=== PATIENT | male | born 1955 | race African-American/Black ===

== ENCOUNTER 2017-08-14 13:14 | Inpatient (IN) | payer OTHER ==
[2017-08-14] VITALS (12 sets, daily range): BP systolic 101–266; BP diastolic 54–242
[~2017-08-14] VITALS: Ht 182.9 cm; Wt 91.3 kg
[2017-08-14 14:26] LABS: BASOPHIL (%) 0.2 % (0-1); EOSINOPHIL (%) 0.7 % (0-5); HEMATOCRIT 36.9 % (38.0-50.0); HEMOGLOBIN 11.6 G/DL (12.5-16.6); IMMATURE GRANULOCYTE (%) 1.9 % (0.0-0.7); LYMPHOCYTE (%) 49.8 % (15-42); LYMPHOCYTE COUNT 2.9 K/uL (1.0-2.8); MCH 33.3 PG (29.0-34.0); MCHC 31.4 G/DL (30.0-36.0); MONOCYTE (%) 3.9 % (3-12); MONOCYTE COUNT 0.2 K/uL (0-0.8); NEUTROPHIL (%) 43.5 % (45-76); NEUTROPHIL COUNT 2.6 K/uL (1.8-6.4); PLATELET COUNT 113 K/uL (156-360); RBC DIS.WIDTH-SD 54.4 % (39-53); RED BLOOD COUNT 3.48 M/uL (4.00-5.50); WHITE BLOOD COUNT 5.9 K/uL (4.1-10.2)
[2017-08-14 14:27] LABS: INTER. NORMALIZED RATIO 1.2
[2017-08-14 14:28] LABS: CHLORIDE 107 mEq/L (99-109); POTASSIUM 4.1 mEq/L (3.7-5.4); SODIUM 140 mEq/L (136-147)
[2017-08-14 14:29] LABS: GLUCOSE 342 mg/dL (70-99)
[2017-08-14 14:33] LABS: CREATININE 2.2 mg/dL (0.6-1.3); GFR ESTIMATE (CALCULATED) 39 mL/min/ (58.99-99999)
[2017-08-14 14:34] LABS: UREA NITROGEN (BUN) 17 mg/dL (9-23)
[2017-08-14 15:00] LABS: TROP-I INTERPRETATION NEGATIVE; TROPONIN-I 0.03 ng/mL (0.0-0.30)
[2017-08-14 15:09] LABS: BASE EXCESS -15.9 mEq/L (-3 to +3); BICARBONATE 12.7 mEq/L (22-26); CARBOXY HGB 1.3 % (0-5); METHEMOGLOBIN 1.2 % (0-1.5); PCO2 40 mm Hg (35-45); PO2 212 mm Hg (80-100); pH 7.11 (7.35-7.45)
[2017-08-14 15:10] LABS: COMMENTS - BLOOD GASES A+C+; DEVICE 980; FI02 100 %; MECHANICAL RATE 16 resp/min; MODE AC; PEEP 5 CM/H20; SITE RR; TIDAL VOLUME 500 ML; TOTAL RESP RATE 16 resp/min
[2017-08-14 17:59] LABS: BASE EXCESS -11.1 mEq/L (-3 to +3); CARBOXY HGB 1.7 % (0-5); METHEMOGLOBIN 1.5 % (0-1.5); PCO2 39 mm Hg (35-45)
[2017-08-14 18:00] LABS: COMMENTS - BLOOD GASES +C; DEVICE PB980; FI02 40 %; MECHANICAL RATE 16 resp/min; MODE ACVC+; PO2 94 mm Hg (80-100); SITE A-LINE; TIDAL VOLUME 500 ML; TOTAL RESP RATE 23 resp/min; pH 7.22 (7.35-7.45)
[2017-08-14 18:01] LABS: PEEP 5 CM/H20
[2017-08-14 18:35] LABS: ALBUMIN 3.2 G/DL (3.2-4.8); ALKALINE PHOSPHATASE 63 IU/L (3-129); ALT (GPT) 64 IU/L (3-49); AST (GOT) 90 IU/L (2-34); CHLORIDE 114 MEQ/L (99-109); GFR ESTIMATE (CALCULATED) > 59 mL/min/ (58.99-99999); MAGNESIUM 1.6 mg/dl (1.3-2.7); PHOSPHORUS 5.3 mg/dL (2.5-4.9); POTASSIUM 4.5 MEQ/L (3.7-5.4); SODIUM 143 MEQ/L (136-147); TOTAL BILIRUBIN 0.9 MG/DL (0.0-1.0); TOTAL PROTEIN 5.3 G/DL (6.4-8.3); UREA NITROGEN (BUN) 15 mg/dL (9-23)
[2017-08-14 18:37] LABS: CREATININE 1.5 MG/DL (0.6-1.3); GLUCOSE 121 mg/dL (70-99); INTER. NORMALIZED RATIO 1.3
[2017-08-14 18:39] LABS: PTT 60.7 SEC (25-37)
[2017-08-14 18:42] LABS: ABS NEUTROPHIL COUNT 8.4; BAND NEUTROPHILS 3.5 % (0-8.0); EOSINOPHIL ABS CT 0; HEMATOCRIT 38.4 % (38.0-50.0); HEMATOLOGY COMMENT 1 SN; HEMOGLOBIN 12.7 G/DL (12.5-16.6); LYMPHOCYTES 6.1 % (15.0-45.0); MCH 30.4 PG (29.0-34.0); MCHC 33.1 G/DL (30.0-36.0); MONOCYTES 0.9 % (0-9.0); MYELOCYTES 0.9 %; PLAT.SUFFICIENCY DECREASED; RBC DIS.WIDTH-SD 53.7 % (39-53); SEG.NEUTROPHILS 88.6 % (46.0-76.0); SMUDGE CELLS 18.4; WHITE BLOOD COUNT 9.1 K/uL (4.1-10.2)
[2017-08-14 18:43] LABS: MCV 91.9 FL (86-99); PLATELET COUNT 53 K/uL (156-360); RED BLOOD COUNT 4.18 M/uL (4.00-5.50)
[2017-08-14 18:55] LABS: APPEARANCE SL.HAZY ((CLEAR)); BILIRUBIN NEGATIVE; BLOOD LARGE; COLOR YELLOW ((YELLOW)); GLUCOSE (STRIP) 50; KETONES NEGATIVE; LEUKOCYTES TRACE; NITRITE NEGATIVE; PROTEIN (STRIP) 100; SPECIFIC GRAVITY 1.009 (1.000-1.030); UROBILINOGEN 0.2 MG/DL (0.2-1.0)
[2017-08-14 19:32] LABS: RED BLOOD CELLS 0-5 /HPF (0-5)
[2017-08-14 19:33] LABS: BACTERIA RARE /HPF; EPITHELIAL CELLS RARE /HPF; MUCUS RARE /LPF; UCUL ADDED? YES; WHITE BLOOD CELLS 40-50 /HPF (0-5)
[2017-08-14 19:40] LABS: FIBRINOGEN 125 mg/dL (150-450)
[2017-08-14 22:06] LABS: AMPHETAMINE NEGATIVE (500 ng/mL); BARBITURATES NEGATIVE (200 ng/mL); BENZODIAZEPINES NEGATIVE (150 ng/mL); BUPRENORPHINE NEGATIVE (10 ng/mL); COCAINE NEGATIVE (150 ng/mL); METHADONE NEGATIVE (200 ng/mL); METHAMPHETAMINE PRESUMPTIVE POSITIVE (500 ng/mL); OPIATES (MORPHINE) NEGATIVE (100 ng/mL); OXYCODONE NEGATIVE (100 ng/mL); PHENCYCLIDINE NEGATIVE (25 ng/mL); PROPOXYPHENE NEGATIVE (300 ng/mL); THC CANNABINOIDS NEGATIVE (50 ng/mL); TRICYCLIC ANTIDEPRESSANTS NEGATIVE (300 ng/mL)
[2017-08-15 00:05] LABS: CHLORIDE 115 mEq/L (99-109); POTASSIUM 5.4 mEq/L (3.7-5.4); SODIUM 145 mEq/L (136-147)
[2017-08-15 00:10] LABS: CREATININE 1.7 mg/dL (0.6-1.3); GFR ESTIMATE (CALCULATED) 53 mL/min/ (58.99-99999)
[2017-08-15 00:11] LABS: UREA NITROGEN (BUN) 17 mg/dL (9-23)
[2017-08-15 00:17] LABS: GLUCOSE 83 mg/dL (70-99)
[2017-08-15 00:42] LABS: INTER. NORMALIZED RATIO 1.3
[2017-08-15 00:47] LABS: FIBRINOGEN 145 mg/dL (150-450)
[2017-08-15 00:56] LABS: PTT 34.6 SEC (25-37)
[2017-08-15 02:25] LABS: BASOPHIL (%) 0.1 % (0-1); EOSINOPHIL (%) 0.2 % (0-5); HEMATOCRIT 34.3 % (38.0-50.0); HEMOGLOBIN 11.4 G/DL (12.5-16.6); IMMATURE GRANULOCYTE (%) 1.1 % (0.0-0.7); LYMPHOCYTE COUNT 0.8 K/uL (1.0-2.8); MCH 29.8 PG (29.0-34.0); MCHC 33.2 G/DL (30.0-36.0); MCV 89.6 FL (86-99); MONOCYTE (%) 8.4 % (3-12); MONOCYTE COUNT 0.8 K/uL (0-0.8); NEUTROPHIL (%) 81.2 % (45-76); NEUTROPHIL COUNT 7.5 K/uL (1.8-6.4); RBC DIS.WIDTH-CV 16.8 % (11.8-14.6); RBC DIS.WIDTH-SD 54.8 % (39-53); RED BLOOD COUNT 3.83 M/uL (4.00-5.50); WHITE BLOOD COUNT 9.2 K/uL (4.1-10.2)
[2017-08-15 02:26] LABS: PLATELET COUNT 85 K/uL (156-360)
[2017-08-15 06:54] LABS: BASOPHIL (%) 0.1 % (0-1); EOSINOPHIL (%) 0 % (0-5); HEMATOCRIT 31.1 % (38.0-50.0); HEMOGLOBIN 10.4 G/DL (12.5-16.6); IMMATURE GRANULOCYTE (%) 0.7 % (0.0-0.7); LYMPHOCYTE (%) 16.3 % (15-42); LYMPHOCYTE COUNT 1.2 K/uL (1.0-2.8); MCH 29.6 PG (29.0-34.0); MCHC 33.4 G/DL (30.0-36.0); MCV 88.6 FL (86-99); MONOCYTE (%) 9.3 % (3-12); MONOCYTE COUNT 0.7 K/uL (0-0.8); NEUTROPHIL (%) 73.6 % (45-76); NEUTROPHIL COUNT 5.3 K/uL (1.8-6.4); RBC DIS.WIDTH-SD 55.6 % (39-53); RED BLOOD COUNT 3.51 M/uL (4.00-5.50); WHITE BLOOD COUNT 7.2 K/uL (4.1-10.2)
[2017-08-15 06:55] LABS: INTER. NORMALIZED RATIO 1.3
[2017-08-15 06:57] LABS: PTT 31.9 SEC (25-37)
[2017-08-15 06:59] LABS: FIBRINOGEN 138 mg/dL (150-450)
[2017-08-15 07:49] LABS: PLAT.SUFFICIENCY DECREASED
[2017-08-15 07:50] LABS: PLATELET COUNT 56 K/uL (156-360)
[2017-08-15 09:06] LABS: ALBUMIN 3.8 G/DL (3.2-4.8); ALKALINE PHOSPHATASE 49 IU/L (3-129); ALT (GPT) 108 IU/L (3-49); CHLORIDE 112 MEQ/L (99-109); GFR ESTIMATE (CALCULATED) 44 mL/min/ (58.99-99999); GLUCOSE 99 mg/dL (70-99); POTASSIUM 5.1 MEQ/L (3.7-5.4); SODIUM 145 MEQ/L (136-147); TOTAL PROTEIN 5.3 G/DL (6.4-8.3); UREA NITROGEN (BUN) 23 mg/dL (9-23)
[2017-08-15 09:07] LABS: AST (GOT) 239 IU/L (2-34); TOTAL BILIRUBIN 4.5 MG/DL (0.0-1.0)
[2017-08-15 09:28] VITALS: BP 128/54
[2017-08-15 09:53] VITALS: BP 127/56
[2017-08-15 10:03] LABS: HEPATITIS B SURFACE ANTIGEN Nonreactive
[2017-08-15 10:04] LABS: ANTI-HEPATITIS A VIRUS (IGM) Nonreactive
[2017-08-15 10:05] LABS: ANTI-HEPATITIS B CORE (IGM) Nonreactive
[2017-08-15 10:11] LABS: MAGNESIUM 1.4 mg/dl (1.3-2.7); PHOSPHORUS 3.7 mg/dL (2.5-4.9)
[2017-08-15 11:04] LABS: HEPATITIS C ANTIBODY REACTIVE
[2017-08-15 12:25] LABS: BASOPHIL (%) 0.1 % (0-1); EOSINOPHIL (%) 0 % (0-5); HEMATOCRIT 29.3 % (38.0-50.0); HEMOGLOBIN 9.9 G/DL (12.5-16.6); IMMATURE GRANULOCYTE (%) 0.4 % (0.0-0.7); LYMPHOCYTE (%) 27.3 % (15-42); MCH 30.1 PG (29.0-34.0); MCHC 33.8 G/DL (30.0-36.0); MCV 89.1 FL (86-99); MONOCYTE (%) 7.9 % (3-12); MONOCYTE COUNT 0.6 K/uL (0-0.8); NEUTROPHIL (%) 64.3 % (45-76); NEUTROPHIL COUNT 4.6 K/uL (1.8-6.4); NRBC (%) 0.3 /100 WBC (0-0); PLATELET COUNT 57 K/uL (156-360); RBC DIS.WIDTH-CV 17.2 % (11.8-14.6); RBC DIS.WIDTH-SD 55.4 % (39-53); RED BLOOD COUNT 3.29 M/uL (4.00-5.50); WHITE BLOOD COUNT 7.2 K/uL (4.1-10.2)
[2017-08-15 12:26] LABS: CARBON DIOXIDE (BICARBONATE) 27.9 MEQ/L (20-31)
[2017-08-15 13:00] LABS: FIBRINOGEN 158 mg/dL (150-450); INTER. NORMALIZED RATIO 1.3
[2017-08-15 13:02] LABS: PTT 29.1 SEC (25-37)
[2017-08-15 18:27] LABS: BASOPHIL (%) 0.3 % (0-1); EOSINOPHIL (%) 0.1 % (0-5); HEMATOCRIT 28.7 % (38.0-50.0); HEMOGLOBIN 9.7 G/DL (12.5-16.6); IMMATURE GRANULOCYTE (%) 0.4 % (0.0-0.7); LYMPHOCYTE (%) 22.6 % (15-42); LYMPHOCYTE COUNT 1.7 K/uL (1.0-2.8); MCHC 33.8 G/DL (30.0-36.0); MCV 88.9 FL (86-99); MONOCYTE (%) 9.1 % (3-12); MONOCYTE COUNT 0.7 K/uL (0-0.8); NEUTROPHIL (%) 67.5 % (45-76); NEUTROPHIL COUNT 5.2 K/uL (1.8-6.4); PLATELET COUNT 52 K/uL (156-360); RBC DIS.WIDTH-CV 17.2 % (11.8-14.6); RBC DIS.WIDTH-SD 55.4 % (39-53); RED BLOOD COUNT 3.23 M/uL (4.00-5.50); WHITE BLOOD COUNT 7.7 K/uL (4.1-10.2)
[2017-08-15 18:51] LABS: FIBRINOGEN 167 mg/dL (150-450); INTER. NORMALIZED RATIO 1.3
[2017-08-15 22:18] LABS: CHLORIDE 109 MEQ/L (99-109); CREATININE 2.1 MG/DL (0.6-1.3); GFR ESTIMATE (CALCULATED) 42 mL/min/ (58.99-99999); GLUCOSE 96 mg/dL (70-99); POTASSIUM 4.7 MEQ/L (3.7-5.4); SODIUM 140 MEQ/L (136-147); UREA NITROGEN (BUN) 30 mg/dL (9-23)
[2017-08-16 05:04] LABS: HEMATOCRIT 30.8 % (38.0-50.0); HEMOGLOBIN 10.4 G/DL (12.5-16.6); MCH 30.6 PG (29.0-34.0); MCHC 33.8 G/DL (30.0-36.0); MCV 90.6 FL (86-99); NRBC (%) 0.2 /100 WBC (0-0); PLATELET COUNT 56 K/uL (156-360); RBC DIS.WIDTH-CV 17.5 % (11.8-14.6); RBC DIS.WIDTH-SD 57.2 % (39-53); WHITE BLOOD COUNT 9.1 K/uL (4.1-10.2)
[2017-08-16 05:36] LABS: ALBUMIN 3.3 G/DL (3.2-4.8); ALKALINE PHOSPHATASE 52 IU/L (3-129); CHLORIDE 111 MEQ/L (99-109); DIRECT BILIRUBIN 3.1 mg/dL (0.0-0.3); GFR ESTIMATE (CALCULATED) 44 mL/min/ (58.99-99999); GLUCOSE 103 mg/dL (70-99); POTASSIUM 4.7 MEQ/L (3.7-5.4); SODIUM 144 MEQ/L (136-147); TOTAL PROTEIN 5.1 G/DL (6.4-8.3); UREA NITROGEN (BUN) 31 mg/dL (9-23)
[2017-08-16 05:37] LABS: ALT (GPT) 246 IU/L (3-49); AST (GOT) 503 IU/L (2-34); PHOSPHORUS 2.4 mg/dL (2.5-4.9)
[2017-08-16 22:09] LABS: CHLORIDE 110 MEQ/L (99-109); CREATININE 1.7 MG/DL (0.6-1.3); GFR ESTIMATE (CALCULATED) 53 mL/min/ (58.99-99999); GLUCOSE 127 mg/dL (70-99); POTASSIUM 4.8 MEQ/L (3.7-5.4); SODIUM 142 MEQ/L (136-147); UREA NITROGEN (BUN) 32 mg/dL (9-23)
[2017-08-17] VITALS (8 sets, daily range): BP systolic 105–148; BP diastolic 73–97
[2017-08-17 05:26] LABS: BASOPHIL (%) 0.1 % (0-1); EOSINOPHIL (%) 0.2 % (0-5); HEMATOCRIT 31.8 % (38.0-50.0); HEMOGLOBIN 10.1 G/DL (12.5-16.6); IMMATURE GRANULOCYTE (%) 0.6 % (0.0-0.7); LYMPHOCYTE (%) 15.7 % (15-42); LYMPHOCYTE COUNT 1.8 K/uL (1.0-2.8); MCHC 31.8 G/DL (30.0-36.0); MCV 94.4 FL (86-99); MONOCYTE (%) 9.4 % (3-12); MONOCYTE COUNT 1.1 K/uL (0-0.8); NEUTROPHIL COUNT 8.3 K/uL (1.8-6.4); NRBC (%) 0.2 /100 WBC (0-0); PLATELET COUNT 68 K/uL (156-360); RBC DIS.WIDTH-CV 17.2 % (11.8-14.6); RBC DIS.WIDTH-SD 59.1 % (39-53); RED BLOOD COUNT 3.37 M/uL (4.00-5.50); WHITE BLOOD COUNT 11.2 K/uL (4.1-10.2)
[2017-08-17 05:44] LABS: INTER. NORMALIZED RATIO 1.2
[2017-08-17 05:47] LABS: PTT 26.2 SEC (25-37)
[2017-08-17 06:05] LABS: ALBUMIN 3.3 G/DL (3.2-4.8); ALKALINE PHOSPHATASE 52 IU/L (3-129); ALT (GPT) 194 IU/L (3-49); CHLORIDE 109 MEQ/L (99-109); CREATININE 1.6 MG/DL (0.6-1.3); GFR ESTIMATE (CALCULATED) 57 mL/min/ (58.99-99999); GLUCOSE 123 mg/dL (70-99); POTASSIUM 4.8 MEQ/L (3.7-5.4); SODIUM 142 MEQ/L (136-147); TOTAL PROTEIN 5.5 G/DL (6.4-8.3); UREA NITROGEN (BUN) 33 mg/dL (9-23)
[2017-08-17 06:06] LABS: AST (GOT) 226 IU/L (2-34); PHOSPHORUS 3.4 mg/dL (2.5-4.9); TOTAL BILIRUBIN 6.9 MG/DL (0.0-1.0)
[2017-08-17 10:57] LABS: HIV-1/2 AB/AG COMBO Nonreactive
[2017-08-17 22:05] LABS: CHLORIDE 112 MEQ/L (99-109); CREATININE 1.5 MG/DL (0.6-1.3); GFR ESTIMATE (CALCULATED) > 59 mL/min/ (58.99-99999); GLUCOSE 121 mg/dL (70-99); POTASSIUM 4.4 MEQ/L (3.7-5.4); SODIUM 143 MEQ/L (136-147); UREA NITROGEN (BUN) 38 mg/dL (9-23)
[2017-08-18] VITALS (14 sets, daily range): BP systolic 110–168; BP diastolic 70–100
[2017-08-18 06:03] LABS: CHLORIDE 113 MEQ/L (99-109); CREATININE 1.6 MG/DL (0.6-1.3); GFR ESTIMATE (CALCULATED) 57 mL/min/ (58.99-99999); GLUCOSE 102 mg/dL (70-99); POTASSIUM 4.7 MEQ/L (3.7-5.4); SODIUM 146 MEQ/L (136-147); UREA NITROGEN (BUN) 41 mg/dL (9-23)
[2017-08-18 06:07] LABS: BASOPHIL (%) 0.2 % (0-1); EOSINOPHIL COUNT 0.1 K/uL (0-0.3); HEMATOCRIT 31.6 % (38.0-50.0); IMMATURE GRANULOCYTE (%) 0.5 % (0.0-0.7); LYMPHOCYTE (%) 15.1 % (15-42); LYMPHOCYTE COUNT 1.7 K/uL (1.0-2.8); MCH 30.4 PG (29.0-34.0); MCHC 31.6 G/DL (30.0-36.0); MONOCYTE (%) 10.2 % (3-12); MONOCYTE COUNT 1.2 K/uL (0-0.8); NEUTROPHIL COUNT 8.3 K/uL (1.8-6.4); NRBC (%) 0.7 /100 WBC (0-0); PLATELET COUNT 85 K/uL (156-360); RBC DIS.WIDTH-SD 58.5 % (39-53); RED BLOOD COUNT 3.29 M/uL (4.00-5.50); WHITE BLOOD COUNT 11.4 K/uL (4.1-10.2)
[2017-08-18 11:52] LABS: INTER. NORMALIZED RATIO 1.2
[2017-08-18 11:54] LABS: PTT 26.3 SEC (25-37)
[2017-08-19] VITALS (11 sets, daily range): BP systolic 103–177; BP diastolic 60–103
[2017-08-19 00:42] LABS: HEMOGLOBIN 10.3 G/DL (12.5-16.6); MCV 95.2 FL (86-99)
[2017-08-19 07:03] LABS: HEMATOCRIT 30.5 % (38.0-50.0); HEMOGLOBIN 9.7 G/DL (12.5-16.6); MCH 30.8 PG (29.0-34.0); MCHC 31.8 G/DL (30.0-36.0); MCV 96.8 FL (86-99); NRBC (%) 1.2 /100 WBC (0-0); PLATELET COUNT 90 K/uL (156-360); RBC DIS.WIDTH-CV 16.9 % (11.8-14.6); RBC DIS.WIDTH-SD 58.4 % (39-53); RED BLOOD COUNT 3.15 M/uL (4.00-5.50); WHITE BLOOD COUNT 7.8 K/uL (4.1-10.2)
[2017-08-19 07:30] LABS: ALKALINE PHOSPHATASE 52 IU/L (3-129); ALT (GPT) 90 IU/L (3-49); CHLORIDE 112 MEQ/L (99-109); CREATININE 1.3 MG/DL (0.6-1.3); DIRECT BILIRUBIN 3.9 mg/dL (0.0-0.3); GFR ESTIMATE (CALCULATED) > 59 mL/min/ (58.99-99999); GLUCOSE 92 mg/dL (70-99); POTASSIUM 4.1 MEQ/L (3.7-5.4); SODIUM 145 MEQ/L (136-147); TOTAL BILIRUBIN 6.1 MG/DL (0.0-1.0); TOTAL PROTEIN 5.4 G/DL (6.4-8.3); UREA NITROGEN (BUN) 35 mg/dL (9-23)
[2017-08-19 07:32] LABS: AST (GOT) 83 IU/L (2-34)
[2017-08-19 10:58] LABS: INTER. NORMALIZED RATIO 1.2
[2017-08-19 11:01] LABS: PTT 56.9 SEC (25-37)
[2017-08-19 16:13] LABS: HEMATOCRIT 31.6 % (38.0-50.0); MCV 95.8 FL (86-99)
[2017-08-19 20:47] LABS: BASOPHIL (%) 0.4 % (0-1); EOSINOPHIL (%) 2.3 % (0-5); EOSINOPHIL COUNT 0.2 K/uL (0-0.3); HEMATOCRIT 31.8 % (38.0-50.0); HEMOGLOBIN 10.2 G/DL (12.5-16.6); IMMATURE GRANULOCYTE (%) 3.5 % (0.0-0.7); LYMPHOCYTE (%) 21.8 % (15-42); LYMPHOCYTE COUNT 1.7 K/uL (1.0-2.8); MCH 30.4 PG (29.0-34.0); MCHC 32.1 G/DL (30.0-36.0); MCV 94.9 FL (86-99); MONOCYTE (%) 14.6 % (3-12); MONOCYTE COUNT 1.1 K/uL (0-0.8); NEUTROPHIL (%) 57.4 % (45-76); NEUTROPHIL COUNT 4.5 K/uL (1.8-6.4); NRBC (%) 3.3 /100 WBC (0-0); RBC DIS.WIDTH-CV 16.7 % (11.8-14.6); RBC DIS.WIDTH-SD 56.2 % (39-53); RED BLOOD COUNT 3.35 M/uL (4.00-5.50); WHITE BLOOD COUNT 7.8 K/uL (4.1-10.2)
[2017-08-19 20:51] LABS: PLATELET COUNT 127 K/uL (156-360)
[2017-08-20 05:50] LABS: INTER. NORMALIZED RATIO 1.2
[2017-08-20 05:53] LABS: BASOPHIL (%) 0.4 % (0-1); EOSINOPHIL (%) 2.3 % (0-5); EOSINOPHIL COUNT 0.2 K/uL (0-0.3); HEMATOCRIT 29.9 % (38.0-50.0); HEMOGLOBIN 9.5 G/DL (12.5-16.6); IMMATURE GRANULOCYTE (%) 4.9 % (0.0-0.7); LYMPHOCYTE (%) 21.3 % (15-42); LYMPHOCYTE COUNT 1.7 K/uL (1.0-2.8); MCH 30.6 PG (29.0-34.0); MCHC 31.8 G/DL (30.0-36.0); MCV 96.5 FL (86-99); MONOCYTE (%) 15.7 % (3-12); MONOCYTE COUNT 1.2 K/uL (0-0.8); NEUTROPHIL (%) 55.4 % (45-76); NEUTROPHIL COUNT 4.3 K/uL (1.8-6.4); NRBC (%) 2.6 /100 WBC (0-0); PTT 77.1 SEC (25-37); RBC DIS.WIDTH-CV 16.9 % (11.8-14.6); RBC DIS.WIDTH-SD 57.7 % (39-53); WHITE BLOOD COUNT 7.8 K/uL (4.1-10.2)
[2017-08-20 06:18] LABS: ALKALINE PHOSPHATASE 62 IU/L (3-129); ALT (GPT) 76 IU/L (3-49); AST (GOT) 72 IU/L (2-34); CHLORIDE 111 MEQ/L (99-109); CREATININE 1.3 MG/DL (0.6-1.3); DIRECT BILIRUBIN 3.4 mg/dL (0.0-0.3); GFR ESTIMATE (CALCULATED) > 59 mL/min/ (58.99-99999); GLUCOSE 106 mg/dL (70-99); POTASSIUM 3.7 MEQ/L (3.7-5.4); SODIUM 144 MEQ/L (136-147); TOTAL BILIRUBIN 5.2 MG/DL (0.0-1.0); UREA NITROGEN (BUN) 34 mg/dL (9-23)
[2017-08-20 06:34] LABS: ABS NEUTROPHIL COUNT 5.7; ANISOCYTOSIS 1+; ATYPICAL LYMPHOCYTE 1.8 %; BAND NEUTROPHILS 3.6 % (0-8.0); EOSINOPHIL ABS CT 0.1; EOSINOPHILS 1.8 % (0-5.0); LYMPHOCYTES 9.9 % (15.0-45.0); MACROCYTES 1+; METAMYELOCYTES 2.7 %; MONOCYTES 9.9 % (0-9.0); MYELOCYTES 0.9 %; NUCLEATED RBC'S 3.6; PLAT.SUFFICIENCY DECREASED; PLATELET COUNT 120 K/uL (156-360); POLYCHROMASIA 1+; SEG.NEUTROPHILS 69.4 % (46.0-76.0)
[2017-08-20 07:35] VITALS: BP 164/85
[2017-08-20 15:21] VITALS: BP 142/82
[2017-08-21] VITALS (7 sets, daily range): BP systolic 134–161; BP diastolic 72–86
[2017-08-21 06:04] LABS: INTER. NORMALIZED RATIO 1.2
[2017-08-21 06:15] LABS: BASOPHIL (%) 0.4 % (0-1); EOSINOPHIL (%) 2.4 % (0-5); EOSINOPHIL COUNT 0.2 K/uL (0-0.3); HEMATOCRIT 31.1 % (38.0-50.0); HEMOGLOBIN 9.4 G/DL (12.5-16.6); IMMATURE GRANULOCYTE (%) 4.3 % (0.0-0.7); LYMPHOCYTE (%) 23.5 % (15-42); LYMPHOCYTE COUNT 1.8 K/uL (1.0-2.8); MCH 30.2 PG (29.0-34.0); MCHC 30.2 G/DL (30.0-36.0); MONOCYTE (%) 13.6 % (3-12); NEUTROPHIL (%) 55.8 % (45-76); NEUTROPHIL COUNT 4.2 K/uL (1.8-6.4); NRBC (%) 2.5 /100 WBC (0-0); PLATELET COUNT 121 K/uL (156-360); RBC DIS.WIDTH-CV 17.5 % (11.8-14.6); RBC DIS.WIDTH-SD 61.2 % (39-53); RED BLOOD COUNT 3.11 M/uL (4.00-5.50); WHITE BLOOD COUNT 7.5 K/uL (4.1-10.2)
[2017-08-21 06:51] LABS: PTT 68.9 SEC (25-37)
[2017-08-21 10:36] LABS: ALBUMIN 2.7 G/DL (3.2-4.8); ALKALINE PHOSPHATASE 58 IU/L (3-129); ALT (GPT) 64 IU/L (3-49); AST (GOT) 68 IU/L (2-34); CHLORIDE 111 MEQ/L (99-109); CREATININE 1.2 MG/DL (0.6-1.3); GFR ESTIMATE (CALCULATED) > 59 mL/min/ (58.99-99999); GLUCOSE 129 mg/dL (70-99); POTASSIUM 3.6 MEQ/L (3.7-5.4); SODIUM 142 MEQ/L (136-147); TOTAL BILIRUBIN 3.5 MG/DL (0.0-1.0); TOTAL PROTEIN 5.2 G/DL (6.4-8.3); UREA NITROGEN (BUN) 24 mg/dL (9-23)
[2017-08-21 11:48] LABS: HEMATOCRIT 25.1 % (38.0-50.0); HEMOGLOBIN 7.9 G/DL (12.5-16.6); MCV 96.9 FL (86-99)
[2017-08-22 00:10] VITALS: BP 153/80
[2017-08-22 06:13] LABS: INTER. NORMALIZED RATIO 1.2
[2017-08-22 06:22] LABS: PTT 90.8 SEC (25-37)
[2017-08-22 08:45] VITALS: BP 163/85
[2017-08-22 08:51] LABS: HEMATOCRIT 30.9 % (38.0-50.0); HEMOGLOBIN 9.8 G/DL (12.5-16.6); MCV 96.6 FL (86-99)
[2017-08-22 09:16] LABS: CHLORIDE 111 MEQ/L (99-109); POTASSIUM 3.6 MEQ/L (3.7-5.4); SODIUM 139 MEQ/L (136-147); TOTAL BILIRUBIN 2.9 MG/DL (0.0-1.0)
[2017-08-22 09:23] LABS: ALKALINE PHOSPHATASE 77 IU/L (3-129); ALT (GPT) 56 IU/L (3-49); AST (GOT) 67 IU/L (2-34); GFR ESTIMATE (CALCULATED) > 59 mL/min/ (58.99-99999); TOTAL PROTEIN 5.3 G/DL (6.4-8.3); UREA NITROGEN (BUN) 22 mg/dL (9-23)
[2017-08-22 09:24] LABS: GLUCOSE 91 mg/dL (70-99)
[2017-08-22 16:12] VITALS: BP 138/74
[2017-08-22 23:58] VITALS: BP 151/87
[2017-08-23 06:16] LABS: INTER. NORMALIZED RATIO 1.5
[2017-08-23 08:00] VITALS: BP 164/98
[2017-08-23 10:59] LABS: HEMATOCRIT 31.8 % (38.0-50.0); HEMOGLOBIN 10.2 G/DL (12.5-16.6); MCH 30.8 PG (29.0-34.0); MCHC 32.1 G/DL (30.0-36.0); MCV 96.1 FL (86-99); NRBC (%) 4.7 /100 WBC (0-0); RBC DIS.WIDTH-CV 17.5 % (11.8-14.6); RBC DIS.WIDTH-SD 58.3 % (39-53); RED BLOOD COUNT 3.31 M/uL (4.00-5.50); WHITE BLOOD COUNT 7.8 K/uL (4.1-10.2)
[2017-08-23 11:00] LABS: PLATELET COUNT 211 K/uL (156-360)
[2017-08-23 11:16] LABS: ALKALINE PHOSPHATASE 84 IU/L (3-129); ALT (GPT) 54 IU/L (3-49); AST (GOT) 67 IU/L (2-34); CHLORIDE 108 MEQ/L (99-109); GFR ESTIMATE (CALCULATED) > 59 mL/min/ (58.99-99999); GLUCOSE 95 mg/dL (70-99); MAGNESIUM 1.8 mg/dl (1.3-2.7); PHOSPHORUS 2.9 mg/dL (2.5-4.9); POTASSIUM 3.7 MEQ/L (3.7-5.4); SODIUM 139 MEQ/L (136-147); TOTAL BILIRUBIN 2.5 MG/DL (0.0-1.0); TOTAL PROTEIN 5.6 G/DL (6.4-8.3); UREA NITROGEN (BUN) 20 mg/dL (9-23)
[2017-08-23] MEDS ORDERED: XIFAXAN550 MG PO (11:55)
[2017-08-23] MEDS ORDERED: WARFARIN SODIU7.5 MG PO (11:55)
[2017-08-23] MEDS ORDERED: LOVENOX100 MG/1 M SC (11:55)
[2017-08-23] MEDS ORDERED: LABETALOL HCL200 MG PO (11:56)
[2017-08-23] MEDS ORDERED: ENDOCET 5-3251 EACH PO (11:56)
[2017-08-23] MEDS ORDERED: APRESOLINE25 MG PO (11:56)
== END 2017-08-23 14:27 | DRG 853 ==
LOC: EME 13:14 → 4WEST 16:06 → ENRESERV 17:36 → 4WEST 08-17 22:40 → CANRESERV 08-19 10:22 → ENRESERV 08-19 10:22 → 4WEST 08-19 10:30 → ENRESERV 08-19 10:48 → 5EAST 08-19 12:26
PROVIDERS: Emergency Medicine; Hospitalist; Internal Medicine Critical Care Medicine; Obstetrics & Gynecology; Surgery
PROC: 30233R1 Transfusion of Nonautologous Platelets into Peripheral Vein, Percutaneous Approach (ICD-10-PCS; principal; 2017-08-14)
PROC: 30230N1 Transfusion of Nonautologous Red Blood Cells into Peripheral Vein, Open Approach (ICD-10-PCS; principal; 2017-08-14)
PROC: 30233M1 Transfusion of Nonautologous Plasma Cryoprecipitate into Peripheral Vein, Percutaneous Approach (ICD-10-PCS; principal; 2017-08-14)
PROC: 30233K1 Transfusion of Nonautologous Frozen Plasma into Peripheral Vein, Percutaneous Approach (ICD-10-PCS; principal; 2017-08-14)
PROC: 0FB20ZZ Excision of Left Lobe Liver, Open Approach (ICD-10-PCS; principal; 2017-08-14)
PROC: 02HV33Z Insertion of Infusion Device into Superior Vena Cava, Percutaneous Approach (ICD-10-PCS; 2017-08-16)
DX: R57.8 Other shock (principal); C22.0 Liver cell carcinoma; I10 Essential (primary) hypertension; K66.1 Hemoperitoneum; K76.89 Other specified diseases of liver; B19.20 Unspecified viral hepatitis C without hepatic coma; R55 Syncope and collapse; I26.99 Other pulmonary embolism without acute cor pulmonale; K74.60 Unspecified cirrhosis of liver; J96.00 Acute respiratory failure, unspecified whether with hypoxia or hypercapnia; K56.7 Ileus, unspecified; B18.2 Chronic viral hepatitis C; J98.11 Atelectasis; K72.90 Hepatic failure, unspecified without coma
CPT/HCPCS: 36600; 71045; 71275; 74018; 74174; 74177; 80047; 80048; 80048 91; 80053; 80074; 80076; 81003; 82105 90; 82140; 82248; 82330; 82803; 83605; 83735; 84100; 84484; 85014; 85018; 85025; 85025 91; 85027; 85384; 85610; 85730; 86850; 86900; 86901; 86920; 86965; 87040; 87070; 87086; 87205; 87389; 87641; 88307; 88341 TC; 88342 TC; 93005; 93970; 94002; 94003; 94760; 94799; 97530 GO; 97530 GP; 99281; 99285; C1751; C1769; C1894; J0330; J0360; J0610; J1100; J1335; J1650; J2250; J2543; J2704; J3010; J3475; J7050; J7644; P9012; P9016; P9017; P9035; P9040; P9047

== ENCOUNTER 2017-08-28 04:50 | Inpatient (IN) | payer OTHER ==
[2017-08-28] VITALS (13 sets, daily range): BP systolic 136–181; BP diastolic 71–111
[~2017-08-28] VITALS: Ht 175.3 cm; Wt 84.5 kg
[~2017-08-28 04:50] MED LIST: APRESOLINE25 MG PO; ENDOCET 5-3251 EACH PO; LABETALOL HCL200 MG PO; LOVENOX100 MG/1 M SC; WARFARIN SODIU7.5 MG PO; XIFAXAN550 MG PO
[2017-08-28 05:31] LABS: ALBUMIN 3.2 g/dL (3.2-4.8); CHLORIDE 105 mEq/L (99-109); INTER. NORMALIZED RATIO 2.4; POTASSIUM 3.6 mEq/L (3.7-5.4); SODIUM 137 mEq/L (136-147)
[2017-08-28 05:33] LABS: GLUCOSE 99 mg/dL (70-99)
[2017-08-28 05:34] LABS: TOTAL PROTEIN 6.2 g/dL (6.4-8.3)
[2017-08-28 05:35] LABS: TOTAL BILIRUBIN 1.8 mg/dL (0.0-1.0)
[2017-08-28 05:37] LABS: ALKALINE PHOSPHATASE 142 IU/L (3-129); CREATININE 0.9 mg/dL (0.6-1.3); GFR ESTIMATE (CALCULATED) > 59 mL/min/ (58.99-99999)
[2017-08-28 05:38] LABS: UREA NITROGEN (BUN) 15 mg/dL (9-23)
[2017-08-28 05:39] LABS: AST (GOT) 64 IU/L (2-34)
[2017-08-28 05:40] LABS: ALT (GPT) 54 IU/L (3-49)
[2017-08-28 05:41] LABS: LIPASE 327 U/L (1.0-51.0)
[2017-08-28 06:04] LABS: PTT 54.4 SEC (25-37)
[2017-08-28 06:08] LABS: HEMATOCRIT 34.2 % (38.0-50.0); HEMOGLOBIN 11.1 G/DL (12.5-16.6); MCH 31.2 PG (29.0-34.0); MCHC 32.5 G/DL (30.0-36.0); MCV 96.1 FL (86-99); NRBC (%) 0.3 /100 WBC (0-0); RBC DIS.WIDTH-CV 18.9 % (11.8-14.6); RBC DIS.WIDTH-SD 64.8 % (39-53); RED BLOOD COUNT 3.56 M/uL (4.00-5.50); WHITE BLOOD COUNT 7.9 K/uL (4.1-10.2)
[2017-08-28 06:49] LABS: PLAT.SUFFICIENCY INCREASED
[2017-08-28 06:50] LABS: PLATELET COUNT 350 K/uL (156-360)
[2017-08-28 12:25] LABS: HEMATOCRIT 32.8 % (38.0-50.0); HEMOGLOBIN 10.8 G/DL (12.5-16.6); MCV 95.6 FL (86-99)
[2017-08-28] MEDS ORDERED: COUMADIN4 MG PO (12:29)
[2017-08-28] MEDS ORDERED: TYLENOL REGULA325 MG PO (12:30)
[2017-08-28 12:49] LABS: INTER. NORMALIZED RATIO 2.3
[2017-08-28 12:51] LABS: PTT 38.3 SEC (25-37)
[2017-08-28 18:14] LABS: HEMATOCRIT 33.9 % (38.0-50.0); HEMOGLOBIN 10.9 G/DL (12.5-16.6); MCV 95.5 FL (86-99)
[2017-08-28 18:47] LABS: INTER. NORMALIZED RATIO 1.7
[2017-08-29 00:39] LABS: HEMATOCRIT 34.3 % (38.0-50.0); HEMOGLOBIN 11.2 G/DL (12.5-16.6); MCV 95.8 FL (86-99)
[2017-08-29 03:14] VITALS: BP 145/81
[2017-08-29 05:24] LABS: HEMOGLOBIN 10.5 G/DL (12.5-16.6); MCH 30.1 PG (29.0-34.0); MCHC 31.8 G/DL (30.0-36.0); MCV 94.6 FL (86-99); RBC DIS.WIDTH-CV 19.3 % (11.8-14.6); RBC DIS.WIDTH-SD 64.6 % (39-53); RED BLOOD COUNT 3.49 M/uL (4.00-5.50); WHITE BLOOD COUNT 7.2 K/uL (4.1-10.2)
[2017-08-29 05:35] LABS: INTER. NORMALIZED RATIO 1.4
[2017-08-29 05:57] LABS: ALBUMIN 3.2 G/DL (3.2-4.8); ALKALINE PHOSPHATASE 121 IU/L (3-129); ALT (GPT) 44 IU/L (3-49); AST (GOT) 61 IU/L (2-34); CHLORIDE 105 MEQ/L (99-109); CREATININE 0.8 MG/DL (0.6-1.3); GFR ESTIMATE (CALCULATED) > 59 mL/min/ (58.99-99999); GLUCOSE 85 mg/dL (70-99); POTASSIUM 3.9 MEQ/L (3.7-5.4); SODIUM 137 MEQ/L (136-147); TOTAL PROTEIN 6.1 G/DL (6.4-8.3); UREA NITROGEN (BUN) 13 mg/dL (9-23)
[2017-08-29 06:41] LABS: PLAT.SUFFICIENCY ADEQUATE; PLATELET COUNT 354 K/uL (156-360)
[2017-08-29 07:53] VITALS: BP 177/94
[2017-08-29 11:04] VITALS: BP 145/82
[2017-08-29 11:40] LABS: HEMATOCRIT 34.7 % (38.0-50.0); HEMOGLOBIN 11.2 G/DL (12.5-16.6); MCV 95.3 FL (86-99)
[2017-08-29 15:16] VITALS: BP 125/68
[2017-08-29 18:26] LABS: HEMATOCRIT 36.3 % (38.0-50.0); HEMOGLOBIN 11.6 G/DL (12.5-16.6); MCV 95.5 FL (86-99)
[2017-08-29 19:28] VITALS: BP 119/64
[2017-08-29 23:30] VITALS: BP 122/67
[2017-08-30 00:42] LABS: HEMATOCRIT 34.3 % (38.0-50.0); HEMOGLOBIN 11.4 G/DL (12.5-16.6); MCV 94.8 FL (86-99)
[2017-08-30 04:10] VITALS: BP 168/86
[2017-08-30 05:27] LABS: HEMATOCRIT 33.9 % (38.0-50.0); HEMOGLOBIN 10.9 G/DL (12.5-16.6); MCV 95.2 FL (86-99)
[2017-08-30 07:51] VITALS: BP 158/92
[2017-08-30 11:13] VITALS: BP 138/81
[2017-08-30 14:38] VITALS: BP 119/74
[2017-08-30 15:57] VITALS: BP 131/82
[2017-08-30 23:19] VITALS: BP 132/68
[2017-08-31 06:43] LABS: HEMATOCRIT 33.8 % (38.0-50.0); MCH 31.4 PG (29.0-34.0); MCHC 32.5 G/DL (30.0-36.0); MCV 96.6 FL (86-99); RBC DIS.WIDTH-CV 19.6 % (11.8-14.6); RBC DIS.WIDTH-SD 67.9 % (39-53)
[2017-08-31 07:08] LABS: PLAT.SUFFICIENCY ADEQUATE; PLATELET COUNT 392 K/uL (156-360)
[2017-08-31 07:28] VITALS: BP 164/90
[2017-08-31 16:26] VITALS: BP 161/82
[2017-08-31 21:02] VITALS: BP 130/80
[2017-09-01 00:35] VITALS: BP 132/81
[2017-09-01 06:11] LABS: HEMATOCRIT 33.6 % (38.0-50.0); HEMOGLOBIN 10.7 G/DL (12.5-16.6); MCH 31.1 PG (29.0-34.0); MCHC 31.8 G/DL (30.0-36.0); MCV 97.7 FL (86-99); RBC DIS.WIDTH-CV 19.5 % (11.8-14.6); RED BLOOD COUNT 3.44 M/uL (4.00-5.50); WHITE BLOOD COUNT 6.1 K/uL (4.1-10.2)
[2017-09-01 06:40] LABS: PLAT.SUFFICIENCY ADEQUATE; PLATELET CLUMPS PRESENT - PLATELET COUNT APPEARS ADQ.; PLATELET COUNT UNABLE TO REPORT K/uL (156-360)
[2017-09-01 08:00] VITALS: BP 169/88
[2017-09-01] MEDS ORDERED: LOVENOX80 MG/0.8 SC (08:25)
== END 2017-09-01 13:45 | DRG 919 ==
LOC: EME → EDBD 04:50 → 4EAST 08:40 → EDOF 08:40 → 5EAST 08:40 → EDOF 08:40 → ENRESERV 08:47 → EDOF 11:53 → ENRESERV 11:59 → 4EAST 12:53 → ENRESERV 08-30 11:04 → 5EAST 08-30 13:12 → ENPENDDIS 09-01 → 5EAST 09-01 13:45
PROVIDERS: Emergency Medicine; Hospitalist; Nurse Practitioner Adult Health; Surgery
PROC: 0HC7XZZ Extirpation of Matter from Abdomen Skin, External Approach (ICD-10-PCS; principal; 2017-08-28)
PROC: 30233N1 Transfusion of Nonautologous Red Blood Cells into Peripheral Vein, Percutaneous Approach (ICD-10-PCS; principal; 2017-08-28)
PROC: 30233K1 Transfusion of Nonautologous Frozen Plasma into Peripheral Vein, Percutaneous Approach (ICD-10-PCS; principal; 2017-08-28)
DX: L76.32 Postprocedural hematoma of skin and subcutaneous tissue following other procedure (principal); Y83.8 Other surgical procedures as the cause of abnormal reaction of the patient, or of later complication, without mention of misadventure at the time of the procedure; D68.32 Hemorrhagic disorder due to extrinsic circulating anticoagulants; T45.515A Adverse effect of anticoagulants, initial encounter; C22.0 Liver cell carcinoma; I26.99 Other pulmonary embolism without acute cor pulmonale; Z79.01 Long term (current) use of anticoagulants; B19.20 Unspecified viral hepatitis C without hepatic coma; K74.60 Unspecified cirrhosis of liver; D64.9 Anemia, unspecified; I10 Essential (primary) hypertension; Z86.711 Personal history of pulmonary embolism
CPT/HCPCS: 74177; 80053; 83605; 83690; 85014; 85018; 85025; 85027; 85610; 85730; 86850; 86900; 86901; 86920; 87070; 87075; 87205; 93970; 99281; 99285; J0360; J1650; J3430; J7030; J7050; P9016; P9017

== ENCOUNTER 2017-09-03 01:33 | Inpatient (IN) | payer OTHER ==
[2017-09-03] VITALS (9 sets, daily range): BP systolic 124–179; BP diastolic 74–107
[~2017-09-03] VITALS: Ht 175.3 cm; Wt 90.5 kg
[~2017-09-03 01:33] MED LIST changes: +COUMADIN4 MG PO; +LOVENOX80 MG/0.8 SC; +TYLENOL REGULA325 MG PO
[2017-09-03 02:20] LABS: BASOPHIL (%) 0.5 % (0-1); EOSINOPHIL (%) 1.9 % (0-5); EOSINOPHIL COUNT 0.1 K/uL (0-0.3); HEMATOCRIT 33.2 % (38.0-50.0); HEMOGLOBIN 10.6 G/DL (12.5-16.6); IMMATURE GRANULOCYTE (%) 0.5 % (0.0-0.7); LYMPHOCYTE COUNT 1.7 K/uL (1.0-2.8); MCH 31.5 PG (29.0-34.0); MCHC 31.9 G/DL (30.0-36.0); MCV 98.8 FL (86-99); MONOCYTE (%) 14.4 % (3-12); MONOCYTE COUNT 0.9 K/uL (0-0.8); NEUTROPHIL (%) 55.7 % (45-76); NEUTROPHIL COUNT 3.5 K/uL (1.8-6.4); PLATELET COUNT 339 K/uL (156-360); RBC DIS.WIDTH-CV 19.4 % (11.8-14.6); RBC DIS.WIDTH-SD 70.2 % (39-53); RED BLOOD COUNT 3.36 M/uL (4.00-5.50); WHITE BLOOD COUNT 6.3 K/uL (4.1-10.2)
[2017-09-03 02:27] LABS: INTER. NORMALIZED RATIO 1.2
[2017-09-03 02:30] LABS: PTT 36.3 SEC (25-37)
[2017-09-03 02:35] LABS: ALBUMIN 3.2 g/dL (3.2-4.8)
[2017-09-03 02:36] LABS: CHLORIDE 107 mEq/L (99-109); POTASSIUM 3.9 mEq/L (3.7-5.4); SODIUM 137 mEq/L (136-147)
[2017-09-03 02:38] LABS: GLUCOSE 104 mg/dL (70-99); TOTAL PROTEIN 6.2 g/dL (6.4-8.3)
[2017-09-03 02:42] LABS: GFR ESTIMATE (CALCULATED) > 59 mL/min/ (58.99-99999)
[2017-09-03 02:43] LABS: AST (GOT) 88 IU/L (2-34); UREA NITROGEN (BUN) 17 mg/dL (9-23)
[2017-09-03 02:44] LABS: ALT (GPT) 70 IU/L (3-49)
[2017-09-03 02:49] LABS: ALKALINE PHOSPHATASE 188 IU/L (3-129); TOTAL BILIRUBIN 1.3 mg/dL (0.0-1.0)
[2017-09-03 06:45] LABS: HEMATOCRIT 32.6 % (38.0-50.0); HEMOGLOBIN 10.3 G/DL (12.5-16.6); MCH 31.1 PG (29.0-34.0); MCHC 31.6 G/DL (30.0-36.0); MCV 98.5 FL (86-99); PLATELET COUNT 338 K/uL (156-360); RBC DIS.WIDTH-CV 19.3 % (11.8-14.6); RBC DIS.WIDTH-SD 69.4 % (39-53); RED BLOOD COUNT 3.31 M/uL (4.00-5.50); WHITE BLOOD COUNT 6.2 K/uL (4.1-10.2)
[2017-09-03 07:08] LABS: ALKALINE PHOSPHATASE 155 IU/L (3-129); ALT (GPT) 60 IU/L (3-49); AST (GOT) 72 IU/L (2-34); C-REACTIVE PROTEIN 1.2 MG/L (0-10); CHLORIDE 107 MEQ/L (99-109); CREATININE 0.9 MG/DL (0.6-1.3); GFR ESTIMATE (CALCULATED) > 59 mL/min/ (58.99-99999); GLUCOSE 95 mg/dL (70-99); SODIUM 138 MEQ/L (136-147); TOTAL BILIRUBIN 1.3 MG/DL (0.0-1.0); TOTAL PROTEIN 5.8 G/DL (6.4-8.3); UREA NITROGEN (BUN) 17 mg/dL (9-23)
[2017-09-03 08:22] LABS: HEMATOCRIT 32.8 % (38.0-50.0); HEMOGLOBIN 10.7 G/DL (12.5-16.6); MCH 31.9 PG (29.0-34.0); MCHC 32.6 G/DL (30.0-36.0); MCV 97.9 FL (86-99); RBC DIS.WIDTH-CV 19.3 % (11.8-14.6); RED BLOOD COUNT 3.35 M/uL (4.00-5.50); WHITE BLOOD COUNT 6.7 K/uL (4.1-10.2)
[2017-09-03 08:30] LABS: INTER. NORMALIZED RATIO 1.2
[2017-09-03 08:32] LABS: PTT 31.4 SEC (25-37)
[2017-09-03 08:59] LABS: PLAT.SUFFICIENCY ADEQUATE; PLATELET COUNT 338 K/uL (156-360)
[2017-09-04 04:21] VITALS: BP 138/80
[2017-09-04 07:37] VITALS: BP 145/85
[2017-09-04 09:00] LABS: HEMATOCRIT 32.8 % (38.0-50.0); HEMOGLOBIN 10.3 G/DL (12.5-16.6); MCH 30.7 PG (29.0-34.0); MCHC 31.4 G/DL (30.0-36.0); MCV 97.9 FL (86-99); RBC DIS.WIDTH-CV 19.4 % (11.8-14.6); RED BLOOD COUNT 3.35 M/uL (4.00-5.50); WHITE BLOOD COUNT 5.9 K/uL (4.1-10.2)
[2017-09-04] MEDS ORDERED: LOVENOX40 MG/0.4 SC (09:09)
[2017-09-04] MEDS ORDERED: DOXYCYCLINE HY100 M3 PO (09:09)
[2017-09-04 11:56] VITALS: BP 123/63
[2017-09-04 14:03] LABS: PLATELET COUNT 326 K/uL (156-360)
== END 2017-09-04 12:33 | DRG 862 ==
LOC: EME → EDBD 01:33 → EDOF 03:27 → 5EAST 03:27 → ENRESERV 03:31 → 5EAST 04:55 → ENPENDDIS 09-04 → 5EAST 09-04 12:33
PROVIDERS: Emergency Medicine; Family Medicine; Physician Assistant Surgical; Student in an Organized Health Care Education/Training Program
PROC: 0HQ7XZZ Repair Abdomen Skin, External Approach (ICD-10-PCS; principal; 2017-09-03)
DX: T81.4XXA Infection following a procedure, initial encounter (principal); C22.0 Liver cell carcinoma; L76.32 Postprocedural hematoma of skin and subcutaneous tissue following other procedure; E89.810 Postprocedural hemorrhage of an endocrine system organ or structure following an endocrine system procedure; I26.99 Other pulmonary embolism without acute cor pulmonale; B19.20 Unspecified viral hepatitis C without hepatic coma; Y83.9 Surgical procedure, unspecified as the cause of abnormal reaction of the patient, or of later complication, without mention of misadventure at the time of the procedure; K74.60 Unspecified cirrhosis of liver; Z65.3 Problems related to other legal circumstances; Z79.01 Long term (current) use of anticoagulants
CPT/HCPCS: 80053; 81003; 82105 90; 83605; 85025; 85027; 85610; 85730; 86140; 86850; 86900; 86901; 87040; 87070; 87075; 87205; 99281; 99285; J1335; J1650; J3370; J7050; J7120